=== PATIENT | female | born 1930 | race African-American/Black ===

== ENCOUNTER 2018-11-03 09:41 | Inpatient (IN) ==
[2018-11-03] MEDS ORDERED: 0.9 % Sodium Chloride 1,000 ML IVC ONE (09:58)
[2018-11-03] MEDS ORDERED: Ondansetron 4 MG/2 ML VIAL IVP ONE (09:58)
--- NOTE | 2018-11-03 10:06 | Emergency Department Note ---
Disposition Clinical Impression: Generalized weakness Nausea and vomiting Qualifiers: Vomiting type: unspecified Vomiting Intractability: non-intractable Qualified Code(s): R11.2 - Nausea with vomiting, unspecified Urinary tract infection Qualifiers: Urinary tract infection type: acute cystitis Hematuria presence: without hematuria Qualified Code(s): N30.00 - Acute cystitis without hematuria Disposition: Admitted As Inpatient Condition: Fair Referrals: Esvin Hernandez Jr, MD [Primary Care Provider] - Forms: ED Satisfaction Letter Time of Disposition: 13:15 Nausea/Vomiting/Diarrhea HPI - General Chief complaint: ED Nausea/Vomiting/Diarrhea Stated complaint: N/V/D Time Seen by Provider: 11/03/18 09:43 Source: patient, EMS Limitations: no limitations Nursing Notes Reviewed: Yes Vital Signs Reviewed: Yes - History of Present Illness HPI Narrative: Nontoxic-appearing 88-year-old female is brought by EMS for evaluation of an abrupt onset of nausea and vomiting and dizziness earlier this morning. She states she gotten up to go to the restroom and had sat down on the bench in the bathroom when she felt dizzy. She states that since then, she has experienced 4 episodes of watery emesis as well as severe nausea. She denies any associated chest pain, shortness of breath, abdominal pain, constipation, diarrhea, or fevers. She denies any hematochezia, hematemesis, or melena. She denies any recent antibiotic use. SHe denies any injury or trauma. She denies any known sick contacts. She does describe several days worth of a nonproductive cough. Pt Subjective Complaint: nausea, vomiting, other (dizziness) Onset (ago): hour(s) Description of emesis: watery Number of episodes of emesis: 4 Associated Abdominal Pain: No Associated symptoms: Reports: cough. Denies: chest pain, fever/chills, dysuria, shortness of breath - Related Data Allergies Allergy/AdvReac Type Severity Reaction Status Date / Time Penicillins [PCN] Allergy Hives Verified 11/03/18 09:51 All systems ED: reviewed and negative except as stated. Review of Systems: As Per HPI Constitutional: Denies: fever, chills, weakness, weight change Eyes: Denies: eye pain, eye discharge, vision change ENT ED: Denies: ear pain, throat pain, dental pain, hearing loss, epistaxis, congestion, dysphagia Cardiovascular: Denies: chest pain, palpitations, dyspnea on exertion, edema, syncope Respiratory: Denies: cough, dyspnea, wheezes, hemoptysis, stridor Gastrointestinal: Reports: as per HPI, nausea, vomiting. Denies: abdominal pain, diarrhea, constipation, hematemesis, melena, hematochezia Genitourinary: Denies: dysuria, frequency, hematuria, discharge Musculoskeletal: Denies: back pain, neck pain, arthralgia, myalgia Integumentary: Denies: rash, abrasion, lesions Neurological: Reports: as per HPI, other ("Dizziness"). Denies: headache, weakness, numbness, paresthesias, confusion, abnormal gait, vertigo Psychiatric: Denies: anxiety, depression, suicidal thoughts, homicidal thoughts, auditory hallucinations, visual hallucinations Endocrine: Denies: fatigue Hematological/Lymphatic: Denies: easy bleeding, easy bruising Allergic/Immunologic: Denies: facial swelling, urticaria Past Medical History - Past Medical History Attestation: Yes The following information was validated with the patient. Source: patient, obtained from family, nursing notes reviewed Medical history: Reports: hypertension Psychiatric history: Reports: no psych history - Social History Smoking Status: Never smoker Smokeless Tobacco Status: No Alcohol use: Reports: none Drug use: Reports: none Physical Exam - General Limitations: no limitations General appearance: alert, in distress - Head Head exam: atraumatic, normocephalic, normal inspection - Eye Eye exam: Present: normal appearance, PERRL, EOMI. Absent: nystagmus - ENT ENT exam: mucous membranes moist - Neck Neck exam: Present: normal inspection, full ROM - Chest Chest inspection: Present: normal inspection, symmetric chest wall rise - Respiratory Respiratory exam: Present: normal lung sounds bilaterally. Absent: respiratory distress, wheezes, stridor, accessory muscle use, prolonged expiratory phase - Cardiovascular Cardiovascular exam: Present: regular rate, normal rhythm, normal heart sounds - Abdominal Exam Abdominal exam: Present: soft, Non-Tender, normal bowel sounds. Absent: distention, guarding, rebound, rigidity - Extremities Exam Extremities exam: Present: normal inspection, full ROM - Neurological Exam Neurological exam: Present: alert, oriented X3 - Psychiatric Psychiatric exam: Present: normal affect, normal mood - Skin Skin exam: Present: warm, dry, intact, normal color. Absent: rash Course Course Narrative: I discussed this patient's case with Dr. Kristen Reilly. Dr. Kristen Reilly has had a [id number] evaluation with the patient and recommends admission to the hospital service for continued nausea, vomiting, urinary tract infection, and generalized weakness. 1320: I spoke with Dr. Vera the hospital service who has accepted the patient for admission to the hospitalist care. Vital Signs Temperature 97.7 F 11/03/18 09:45 Pulse Rate 92 11/03/18 09:45 Respiratory Rate 18 11/03/18 09:45 Blood Pressure 161/97 11/03/18 09:45 O2 Sat by Pulse Oximetry 96 11/03/18 09:45 Temperature 97.7 F 11/03/18 09:45 Pulse Rate 92 11/03/18 09:45 Respiratory Rate 18 11/03/18 09:45 Blood Pressure 161/97 11/03/18 09:45 O2 Sat by Pulse Oximetry 96 11/03/18 09:45 Oxygen Delivery Oxygen Delivery Room Air Nausea/Vomiting/Diarrhea - Medical Records Medical records reviewed: Yes I reviewed the patient's medical records. - Lab Data Lab results reviewed: Yes I reviewed the patient's lab results. Lab results narrative: Lab Results 11/03/18 11/03/18 11/03/18 Range/Units 10:25 10:25 10:25 WBC 8.8 (4.3-11.1) K/mcL RBC 4.74 (3.82-4.97) M/mcL Hgb 14.6 (11.5-15.4) g/dL Hct 43.8 (35.3-44.9) % MCV 92.4 (83.0-100.0) fL MCH 30.8 (28.0-33.3) pg MCHC 33.3 (31.6-35.5) g/dL RDW 13.0 (11.5-14.5) % Plt Count 130 L (140-400) K/mcL MPV 11.0 (9.4-12.4) fL Immature Gran % 0.5 (0-4) % Seg Neutrophils % 85.7 % Lymphocytes % 6.9 % Monocytes % 6.5 % Eosinophils % 0.2 % Basophils % 0.2 % Neutrophils # 7.5 (1.6-8.9) K/mcL Lymphocytes # 0.6 (0.6-4.6) K/mcL Monocytes # 0.6 (0.0-1.3) K/mcL Eosinophils # 0.0 (0.0-0.6) K/mcL Basophils # 0.0 (0.0-0.2) K/mcL Sodium 133 L (136-145) mEq/L Potassium 3.2 L (3.5-5.1) mEq/L Chloride 95 L (98-107) mEq/L Carbon Dioxide 31 H (23-29) mEq/L BUN 11 (8-23) mg/dL Creatinine 0.77 (0.60-1.20) mg/dL Est GFR ( Amer) > 60 (> 60) Est GFR (Non-Af Amer) > 60 (> 60) BUN/Creatinine Ratio 14 (6-26) Glucose 157 H (70-105) mg/dL Calculated Osmolality 279 L (280-300) Calcium 9.5 (8.6-10.3) mg/dL Total Bilirubin 1.2 H (0.3-1.0) mg/dL AST 19 (13-39) Units/L ALT 14 (7-52) Units/L Alkaline Phosphatase 74 (34-104) Units/L Troponin I < 0.03 (< 0.04) ng/mL Serum Total Protein 7.4 (6.4-8.9) g/dL Albumin 4.0 (3.5-5.7) g/dL Globulin 3.4 (2.4-3.5) g/dL Albumin/Globulin Ratio 1.2 (1.1-2.2) Lipase 10 L (11-82) Units/L Urine Color (Yellow) Urine Clarity (Clear) Urine pH (5.0-8.0) pH Units Ur Specific [place] (1.010-1.025) Urine Protein (Neg-Trace) mg/dL Urine Glucose (UA) (Normal) mg/dL Urine Ketones (Negative) mg/dL Urine Blood (Negative) Urine Nitrite (Negative) Urine Bilirubin (Negative) Urine Urobilinogen (Normal) mg/dL Ur Leukocyte Esterase (Negative) Urine Microscopic RBC (0-3) per hpf Urine Microscopic WBC (0-3) per hpf Ur Squamous Epith Cells (None-Few) per lpf Urine Bacteria (None-Few) per hpf Hyaline Casts (None-Few) per lpf Ur Culture Indicated? (NO) 11/03/18 Range/Units 11:37 WBC (4.3-11.1) K/mcL RBC (3.82-4.97) M/mcL Hgb (11.5-15.4) g/dL Hct (35.3-44.9) % MCV (83.0-100.0) fL MCH (28.0-33.3) pg MCHC (31.6-35.5) g/dL RDW (11.5-14.5) % Plt Count (140-400) K/mcL MPV (9.4-12.4) fL Immature Gran % (0-4) % Seg Neutrophils % % Lymphocytes % % Monocytes % % Eosinophils % % Basophils % % Neutrophils # (1.6-8.9) K/mcL Lymphocytes # (0.6-4.6) K/mcL Monocytes # (0.0-1.3) K/mcL Eosinophils # (0.0-0.6) K/mcL Basophils # (0.0-0.2) K/mcL Sodium (136-145) mEq/L Potassium (3.5-5.1) mEq/L Chloride (98-107) mEq/L Carbon Dioxide (23-29) mEq/L BUN (8-23) mg/dL Creatinine (0.60-1.20) mg/dL Est GFR ( Amer) (> 60) Est GFR (Non-Af Amer) (> 60) BUN/Creatinine Ratio (6-26) Glucose (70-105) mg/dL Calculated Osmolality (280-300) Calcium (8.6-10.3) mg/dL Total Bilirubin (0.3-1.0) mg/dL AST (13-39) Units/L ALT (7-52) Units/L Alkaline Phosphatase (34-104) Units/L Troponin I (< 0.04) ng/mL Serum Total Protein (6.4-8.9) g/dL Albumin (3.5-5.7) g/dL Globulin (2.4-3.5) g/dL Albumin/Globulin Ratio (1.1-2.2) Lipase (11-82) Units/L Urine Color Yellow (Yellow) Urine Clarity Cloudy A (Clear) Urine pH 7.5 (5.0-8.0) pH Units Ur Specific [place] 1.008 L (1.010-1.025) Urine Protein Negative (Neg-Trace) mg/dL Urine Glucose (UA) Normal (Normal) mg/dL Urine Ketones Trace H (Negative) mg/dL Urine Blood Negative (Negative) Urine Nitrite Positive A (Negative) Urine Bilirubin Negative (Negative) Urine Urobilinogen Normal (Normal) mg/dL Ur Leukocyte Esterase Trace H (Negative) Urine Microscopic RBC 0-3 (0-3) per hpf Urine Microscopic WBC 5-15 H (0-3) per hpf Ur Squamous Epith Cells Many H (None-Few) per lpf Urine Bacteria Many H (None-Few) per hpf Hyaline Casts None Seen (None-Few) per lpf Ur Culture Indicated? NO. A (NO) Result diagrams: 11/03/18 10:25 11/03/18 10:25 Lab Results 11/03/18 11/03/18 11/03/18 Range/Units 10:25 10:25 10:25 WBC 8.8 (4.3-11.1) K/mcL RBC 4.74 (3.82-4.97) M/mcL Hgb 14.6 (11.5-15.4) g/dL Hct 43.8 (35.3-44.9) % MCV 92.4 (83.0-100.0) fL MCH 30.8 (28.0-33.3) pg MCHC 33.3 (31.6-35.5) g/dL RDW 13.0 (11.5-14.5) % Plt Count 130 L (140-400) K/mcL MPV 11.0 (9.4-12.4) fL Immature Gran % 0.5 (0-4) % Seg Neutrophils % 85.7 % Lymphocytes % 6.9 % Monocytes % 6.5 % Eosinophils % 0.2 % Basophils % 0.2 % Neutrophils # 7.5 (1.6-8.9) K/mcL Lymphocytes # 0.6 (0.6-4.6) K/mcL Monocytes # 0.6 (0.0-1.3) K/mcL Eosinophils # 0.0 (0.0-0.6) K/mcL Basophils # 0.0 (0.0-0.2) K/mcL Sodium 133 L (136-145) mEq/L Potassium 3.2 L (3.5-5.1) mEq/L Chloride 95 L (98-107) mEq/L Carbon Dioxide 31 H (23-29) mEq/L BUN 11 (8-23) mg/dL Creatinine 0.77 (0.60-1.20) mg/dL Est GFR ( Amer) > 60 (> 60) Est GFR (Non-Af Amer) > 60 (> 60) BUN/Creatinine Ratio 14 (6-26) Glucose 157 H (70-105) mg/dL Calculated Osmolality 279 L (280-300) Calcium 9.5 (8.6-10.3) mg/dL Total Bilirubin 1.2 H (0.3-1.0) mg/dL AST 19 (13-39) Units/L ALT 14 (7-52) Units/L Alkaline Phosphatase 74 (34-104) Units/L Troponin I < 0.03 (< 0.04) ng/mL Serum Total Protein 7.4 (6.4-8.9) g/dL Albumin 4.0 (3.5-5.7) g/dL Globulin 3.4 (2.4-3.5) g/dL Albumin/Globulin Ratio 1.2 (1.1-2.2) Lipase 10 L (11-82) Units/L Urine Color (Yellow) Urine Clarity (Clear) Urine pH (5.0-8.0) pH Units Ur Specific [place] (1.010-1.025) Urine Protein (Neg-Trace) mg/dL Urine Glucose (UA) (Normal) mg/dL Urine Ketones (Negative) mg/dL Urine Blood (Negative) Urine Nitrite (Negative) Urine Bilirubin (Negative) Urine Urobilinogen (Normal) mg/dL Ur Leukocyte Esterase (Negative) Urine Microscopic RBC (0-3) per hpf Urine Microscopic WBC (0-3) per hpf Ur Squamous Epith Cells (None-Few) per lpf Urine Bacteria (None-Few) per hpf Hyaline Casts (None-Few) per lpf Ur Culture Indicated? (NO) 11/03/18 Range/Units 11:37 WBC (4.3-11.1) K/mcL RBC (3.82-4.97) M/mcL Hgb (11.5-15.4) g/dL Hct (35.3-44.9) % MCV (83.0-100.0) fL MCH (28.0-33.3) pg MCHC (31.6-35.5) g/dL RDW (11.5-14.5) % Plt Count (140-400) K/mcL MPV (9.4-12.4) fL Immature Gran % (0-4) % Seg Neutrophils % % Lymphocytes % % Monocytes % % Eosinophils % % Basophils % % Neutrophils # (1.6-8.9) K/mcL Lymphocytes # (0.6-4.6) K/mcL Monocytes # (0.0-1.3) K/mcL Eosinophils # (0.0-0.6) K/mcL Basophils # (0.0-0.2) K/mcL Sodium (136-145) mEq/L Potassium (3.5-5.1) mEq/L Chloride (98-107) mEq/L Carbon Dioxide (23-29) mEq/L BUN (8-23) mg/dL Creatinine (0.60-1.20) mg/dL Est GFR ( Amer) (> 60) Est GFR (Non-Af Amer) (> 60) BUN/Creatinine Ratio (6-26) Glucose (70-105) mg/dL Calculated Osmolality (280-300) Calcium (8.6-10.3) mg/dL Total Bilirubin (0.3-1.0) mg/dL AST (13-39) Units/L ALT (7-52) Units/L Alkaline Phosphatase (34-104) Units/L Troponin I (< 0.04) ng/mL Serum Total Protein (6.4-8.9) g/dL Albumin (3.5-5.7) g/dL Globulin (2.4-3.5) g/dL Albumin/Globulin Ratio (1.1-2.2) Lipase (11-82) Units/L Urine Color Yellow (Yellow) Urine Clarity Cloudy A (Clear) Urine pH 7.5 (5.0-8.0) pH Units Ur Specific [place] 1.008 L (1.010-1.025) Urine Protein Negative (Neg-Trace) mg/dL Urine Glucose (UA) Normal (Normal) mg/dL Urine Ketones Trace H (Negative) mg/dL Urine Blood Negative (Negative) Urine Nitrite Positive A (Negative) Urine Bilirubin Negative (Negative) Urine Urobilinogen Normal (Normal) mg/dL Ur Leukocyte Esterase Trace H (Negative) Urine Microscopic RBC 0-3 (0-3) per hpf Urine Microscopic WBC 5-15 H (0-3) per hpf Ur Squamous Epith Cells Many H (None-Few) per lpf Urine Bacteria Many H (None-Few) per hpf Hyaline Casts None Seen (None-Few) per lpf Ur Culture Indicated? NO. A (NO) - Radiology Data Radiology results reviewed: Yes I reviewed the patient's radiology results. Chest X-Ray 11/03/18 09:59 IMPRESSION: No acute cardiopulmonary findings. D/ / Jazmine Han MD / Jazmine Han MD Interpreting Provider: Jazmine Han MD Abdomen/Pelvis CT 11/03/18 11:02 IMPRESSION: No acute process is identified involving the bowel to explain patient's nausea and vomiting. Some bowel diverticulosis is noted without acute diverticulitis. No CT evidence of acute appendicitis. There is mild to moderate right-sided hydronephrosis, with marked ureteral dilation seen throughout its course, with no underlying calculus seen within the ureter. 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 Multilevel degenerative changes are seen in the spine, as noted above. Degenerative changes are seen at the pubic symphysis, with mild soft tissue thickening surrounding the joint space is well as a small amount of joint fluid. No definite osseous destructive change seen to suggest osteomyelitis within this joint, however. Cardiomegaly. Focal abnormal area of wedge-shaped low attenuation seen within the subcapsular portion of the right hepatic lobe measuring 2.6 cm, axial image 58. Further workup is recommended with MR imaging of the liver using liver mass protocol if able. If unable to undergo MRI, a liver mass protocol CT examination should be performed. This will also allow assessment of the presumed multiple hepatic cysts throughout the liver. D/ / 11/03/2018 13:07:55 Rio Calderon MD / bcarter Interpreting Provider: Rio Calderon MD - EKG Data EKG attestation: Yes I reviewed and interpreted this EKG. EKG results narrative: EKG shows a atrial fibrillation at a rate of 82 bpm. QRS duration 100, QT/QTc interval 423/47. No ectopy noted. No ST elevations. No old EKG for comparison.
[2018-11-03 10:38] LABS: Basophils % 0.2 %; Eosinophils % 0.2 %; Hematocrit 43.8 % (35.3-44.9); Hemoglobin 14.6 g/dL (11.5-15.4); Immature Granulocytes % 0.5 % (0-4); Lymphocytes # 0.6 K/mcL (0.6-4.6); Lymphocytes % 6.9 %; Mean Corpuscular HGB Conc 33.3 g/dL (31.6-35.5); Mean Corpuscular Hemoglobin 30.8 pg (28.0-33.3); Mean Corpuscular Volume 92.4 fL (83.0-100.0); Monocytes # 0.6 K/mcL (0.0-1.3); Monocytes % 6.5 %; Neutrophils # 7.5 K/mcL (1.6-8.9); Platelet Count 130 K/mcL (140-400); Red Blood Count 4.74 M/mcL (3.82-4.97); Segmented Neutrophils % 85.7 %
[2018-11-03 10:58] LABS: Alanine Aminotransferase 14 Units/L (7-52); Albumin/Globulin Ratio 1.2 (1.1-2.2); Alkaline Phosphatase 74 Units/L (34-104); Aspartate Amino Transferase 19 Units/L (13-39); BUN/Creatinine Ratio 14 (6-26); Bilirubin,Total 1.2 mg/dL (0.3-1.0); Blood Urea Nitrogen 11 mg/dL (8-23); Calcium 9.5 mg/dL (8.6-10.3); Carbon Dioxide 31 mEq/L (23-29); Chloride 95 mEq/L (98-107); Globulin 3.4 g/dL (2.4-3.5); Glucose 157 mg/dL (70-105); Lipase 10 Units/L (11-82); Osmolality,Calculated 279 (280-300); Potassium 3.2 mEq/L (3.5-5.1); Sodium 133 mEq/L (136-145); Total Protein 7.4 g/dL (6.4-8.9); eGFR For Non-African Americans > 60 (> 60)
[2018-11-03] MEDS ORDERED: Isovue-370 500 ML BOTTLE IVP ONE (11:02)
[2018-11-03 12:00] LABS: Bilirubin,Urine Negative (Negative); Blood,Urine Negative (Negative); Clarity,Urine Cloudy (Clear); Color,Urine Yellow (Yellow); Glucose,Urine (UA) Normal (Normal); Ketones,Urine Trace mg/dL (Negative); Leukocyte Esterase,Urine Trace (Negative); Nitrite,Urine Positive (Negative); PH,Urine 7.5 pH Units (5.0-8.0); Protein,Urine Negative (Neg-Trace); Specific Gravity,Urine 1.008 (1.010-1.025); Urobilinogen,Urine Normal (Normal)
[2018-11-03 12:02] LABS: Bacteria,Urine Many per hpf (None-Few); Hyaline Casts,Urine None Seen per lpf (None-Few); RBC,Urine 0-3 per hpf (0-3); Squamous Epithelial Cell,Urine Many per lpf (None-Few)
--- NOTE | 2018-11-03 13:20 | Emergency Department Note ---
Disposition Clinical Impression: Generalized weakness Nausea and vomiting Qualifiers: Vomiting type: unspecified Vomiting Intractability: non-intractable Qualified Code(s): R11.2 - Nausea with vomiting, unspecified Urinary tract infection Qualifiers: Urinary tract infection type: acute cystitis Hematuria presence: without hematuria Qualified Code(s): N30.00 - Acute cystitis without hematuria Disposition: Admitted As Inpatient Condition: Fair Referrals: Esvin Hernandez Jr, MD [Primary Care Provider] - Forms: ED Satisfaction Letter General Adult HPI - General Chief complaint: ED Nausea/Vomiting/Diarrhea Stated complaint: N/V/D Time Seen by Provider: 11/03/18 09:43 Source: patient, EMS Limitations: no limitations - History of Present Illness Pain Scale: 0 - Related Data Allergies Allergy/AdvReac Type Severity Reaction Status Date / Time Penicillins [PCN] Allergy Hives Verified 11/03/18 09:51 Constitutional: Denies: fever, chills, weakness, weight change Eyes: Denies: eye pain, eye discharge, vision change ENT ED: Denies: ear pain, throat pain, dental pain, hearing loss, epistaxis, congestion, dysphagia Cardiovascular: Denies: chest pain, palpitations, dyspnea on exertion, edema, syncope Respiratory: Denies: cough, dyspnea, wheezes, hemoptysis, stridor Gastrointestinal: Reports: as per HPI, nausea, vomiting. Denies: abdominal pain, diarrhea, constipation, hematemesis, melena, hematochezia Genitourinary: Denies: dysuria, frequency, hematuria, discharge Musculoskeletal: Denies: back pain, neck pain, arthralgia, myalgia Integumentary: Denies: rash, abrasion, lesions Neurological: Reports: as per HPI, other ("Dizziness"). Denies: headache, weakness, numbness, paresthesias, confusion, abnormal gait, vertigo Psychiatric: Denies: anxiety, depression, suicidal thoughts, homicidal thoughts, auditory hallucinations, visual hallucinations Endocrine: Denies: fatigue Hematological/Lymphatic: Denies: easy bleeding, easy bruising Allergic/Immunologic: Denies: facial swelling, urticaria Past Medical History - Past Medical History Medical history: Reports: hypertension Psychiatric history: Reports: no psych history - Social History Smoking Status: Never smoker Smokeless Tobacco Status: No Alcohol use: Reports: none Drug use: Reports: none Physical Exam - General Limitations: no limitations General appearance: alert, in distress Course Vital Signs Temperature 97.7 F 11/03/18 09:45 Pulse Rate 92 11/03/18 09:45 Respiratory Rate 18 11/03/18 09:45 Blood Pressure 161/97 11/03/18 09:45 O2 Sat by Pulse Oximetry 96 11/03/18 09:45 Temperature 97.7 F 11/03/18 09:45 Pulse Rate 92 11/03/18 09:45 Respiratory Rate 18 11/03/18 09:45 Blood Pressure 161/97 11/03/18 09:45 O2 Sat by Pulse Oximetry 96 11/03/18 09:45 Oxygen Delivery Oxygen Delivery Room Air Medical Decision Making - Lab Data Result diagrams: 11/03/18 10:25 11/03/18 10:25 Lab Results 11/03/18 11/03/18 11/03/18 Range/Units 10:25 10:25 10:25 WBC 8.8 (4.3-11.1) K/mcL RBC 4.74 (3.82-4.97) M/mcL Hgb 14.6 (11.5-15.4) g/dL Hct 43.8 (35.3-44.9) % MCV 92.4 (83.0-100.0) fL MCH 30.8 (28.0-33.3) pg MCHC 33.3 (31.6-35.5) g/dL RDW 13.0 (11.5-14.5) % Plt Count 130 L (140-400) K/mcL MPV 11.0 (9.4-12.4) fL Immature Gran % 0.5 (0-4) % Seg Neutrophils % 85.7 % Lymphocytes % 6.9 % Monocytes % 6.5 % Eosinophils % 0.2 % Basophils % 0.2 % Neutrophils # 7.5 (1.6-8.9) K/mcL Lymphocytes # 0.6 (0.6-4.6) K/mcL Monocytes # 0.6 (0.0-1.3) K/mcL Eosinophils # 0.0 (0.0-0.6) K/mcL Basophils # 0.0 (0.0-0.2) K/mcL Sodium 133 L (136-145) mEq/L Potassium 3.2 L (3.5-5.1) mEq/L Chloride 95 L (98-107) mEq/L Carbon Dioxide 31 H (23-29) mEq/L BUN 11 (8-23) mg/dL Creatinine 0.77 (0.60-1.20) mg/dL Est GFR ( Amer) > 60 (> 60) Est GFR (Non-Af Amer) > 60 (> 60) BUN/Creatinine Ratio 14 (6-26) Glucose 157 H (70-105) mg/dL Calculated Osmolality 279 L (280-300) Calcium 9.5 (8.6-10.3) mg/dL Total Bilirubin 1.2 H (0.3-1.0) mg/dL AST 19 (13-39) Units/L ALT 14 (7-52) Units/L Alkaline Phosphatase 74 (34-104) Units/L Troponin I < 0.03 (< 0.04) ng/mL Serum Total Protein 7.4 (6.4-8.9) g/dL Albumin 4.0 (3.5-5.7) g/dL Globulin 3.4 (2.4-3.5) g/dL Albumin/Globulin Ratio 1.2 (1.1-2.2) Lipase 10 L (11-82) Units/L Urine Color (Yellow) Urine Clarity (Clear) Urine pH (5.0-8.0) pH Units Ur Specific [place] (1.010-1.025) Urine Protein (Neg-Trace) mg/dL Urine Glucose (UA) (Normal) mg/dL Urine Ketones (Negative) mg/dL Urine Blood (Negative) Urine Nitrite (Negative) Urine Bilirubin (Negative) Urine Urobilinogen (Normal) mg/dL Ur Leukocyte Esterase (Negative) Urine Microscopic RBC (0-3) per hpf Urine Microscopic WBC (0-3) per hpf Ur Squamous Epith Cells (None-Few) per lpf Urine Bacteria (None-Few) per hpf Hyaline Casts (None-Few) per lpf Ur Culture Indicated? (NO) 11/03/18 Range/Units 11:37 WBC (4.3-11.1) K/mcL RBC (3.82-4.97) M/mcL Hgb (11.5-15.4) g/dL Hct (35.3-44.9) % MCV (83.0-100.0) fL MCH (28.0-33.3) pg MCHC (31.6-35.5) g/dL RDW (11.5-14.5) % Plt Count (140-400) K/mcL MPV (9.4-12.4) fL Immature Gran % (0-4) % Seg Neutrophils % % Lymphocytes % % Monocytes % % Eosinophils % % Basophils % % Neutrophils # (1.6-8.9) K/mcL Lymphocytes # (0.6-4.6) K/mcL Monocytes # (0.0-1.3) K/mcL Eosinophils # (0.0-0.6) K/mcL Basophils # (0.0-0.2) K/mcL Sodium (136-145) mEq/L Potassium (3.5-5.1) mEq/L Chloride (98-107) mEq/L Carbon Dioxide (23-29) mEq/L BUN (8-23) mg/dL Creatinine (0.60-1.20) mg/dL Est GFR ( Amer) (> 60) Est GFR (Non-Af Amer) (> 60) BUN/Creatinine Ratio (6-26) Glucose (70-105) mg/dL Calculated Osmolality (280-300) Calcium (8.6-10.3) mg/dL Total Bilirubin (0.3-1.0) mg/dL AST (13-39) Units/L ALT (7-52) Units/L Alkaline Phosphatase (34-104) Units/L Troponin I (< 0.04) ng/mL Serum Total Protein (6.4-8.9) g/dL Albumin (3.5-5.7) g/dL Globulin (2.4-3.5) g/dL Albumin/Globulin Ratio (1.1-2.2) Lipase (11-82) Units/L Urine Color Yellow (Yellow) Urine Clarity Cloudy A (Clear) Urine pH 7.5 (5.0-8.0) pH Units Ur Specific [place] 1.008 L (1.010-1.025) Urine Protein Negative (Neg-Trace) mg/dL Urine Glucose (UA) Normal (Normal) mg/dL Urine Ketones Trace H (Negative) mg/dL Urine Blood Negative (Negative) Urine Nitrite Positive A (Negative) Urine Bilirubin Negative (Negative) Urine Urobilinogen Normal (Normal) mg/dL Ur Leukocyte Esterase Trace H (Negative) Urine Microscopic RBC 0-3 (0-3) per hpf Urine Microscopic WBC 5-15 H (0-3) per hpf Ur Squamous Epith Cells Many H (None-Few) per lpf Urine Bacteria Many H (None-Few) per hpf Hyaline Casts None Seen (None-Few) per lpf Ur Culture Indicated? NO. A (NO) Attestation Statement - Attestation Attestation: I examined this patient and my medical decision-making was reviewed with the Resident Physician. I agree with the documented findings, disposition and treatment plan as described except to the extent set forth below. 88 year old female presents to the ED with complaints of generalized weakness and dizziness with nausea and vomitting. Juaquin [id number] shows to have a UTI with right hydronephrosis seoncaey to a possible urinaray stricture. Patient otherwise non toxic and stable but on re-evlaution she states that she feels weak still. She also has liver cysts that will need Ct/MR protocol for her liver. Juaquin will be admitte dto [facility] for UTI/generlized weakness
[2018-11-03] MEDS ORDERED: Naloxone 0.4 MG/ML INJ IVP PRN (13:33)
[2018-11-03] MEDS ORDERED: traMADol 50 MG TABLET PO PRN (13:34)
[2018-11-03] MEDS ORDERED: Acetaminophen 325 MG TABLET PO PRN (13:34)
[2018-11-03] MEDS ORDERED: Ondansetron 4 MG/2 ML VIAL IVP PRN (13:35)
[2018-11-03] MEDS ORDERED: Ringers Solution, Lactated 1,000 ML IVC SCH (13:45)
--- NOTE | 2018-11-03 14:08 | Internal Med History&Physical ---
Date of Encounter: 11/03/18 Time of Encounter: 13:45 Internal Medicine - H&P: HPI Chief complaint: generalized weakness, nausea Admitted From: Home History of present illness: Ms. Jack is a 88 year old female with past medical history of atrial fibrillation not on anticoagulation, hypertension, presented to the ED with 1 day history of generalized weakness and nausea. Associated with foul smelling urine but no significant dysuria. Denies fever but she was sweating profusely. Denies any flank pain. She has history of Escherichia coli UTI back in December and unsure whether she had tx at that time. No chest pain, shortness of breath, orthopnea, PND, or leg swelling. No cough, sputum production, abdominal pain, or constipation. Denies joint pain, rash. In the ED, she was afebrile and hemodynamically stable. Workup shows normal white blood cell count, potassium of 3.2, normal LFT and lipase, and urinalysis positive for nitrite and leukocyte esterase. CT scan showed mild to moderate right-sided hydronephrosis associated with marked ureteral dilatation without any underlying calculus ?distal ureteral stricture. No history of radiation in pelvic region. Patient was given 1 dose of ciprofloxacin and admitted for further management. Past Med Surg Social Fam HX - Past Medical History Attestation: Yes The following information was validated with the patient. Medical history: atrial fibrillation, hypertension Psychiatric history: no psych history - Past Surgical History Surgical History: no surgical history Additional surgical history: breast biopsy - Social History Smoking Status: Never smoker Smokeless Tobacco Status: No Alcohol use: none Drug use: none - Additional Family History Additional family history: Reviewed and noncontributory Internal Medicine - H&P: Meds Allergy/AdvReac Type Severity Reaction Status Date / Time Penicillins [PCN] Allergy Hives Verified 11/03/18 09:51 All Systems PM: A 10-system review of systems was performed and is negative for pertinent findings except as documented above in the HPI. - Constitutional Vitals: Temp Pulse Resp BP Pulse Ox 97.7 F 93 18 143/100 98 11/03/18 09:45 11/03/18 13:28 11/03/18 13:28 11/03/18 13:28 11/03/18 13:28 Exam: General: Alert and oriented, not in acute distress. HEENT:EOMI, pupils equal, round and reactive. Cardiovascular:Normal S1 & S2, No JVD. Irregular rhythm but normal rate Lungs: clear to auscultation, no wheezes/rales Abdomen:Soft, non-tender, no rigidity. : No CVA tenderness bilaterally Extremities:No deformity or swelling Neurological:Normal cognition and motor skills. Non-focal Skin: Clammy, No rash Pulses:Carotid and radial pulses normal +2. Rest of the physical exam is non contributory Internal Med - H&P Results - Labs CBC & Chem 7: 11/03/18 10:25 11/03/18 10:25 Labs: Short CBC 11/03/18 Range/Units 10:25 WBC 8.8 (4.3-11.1) K/mcL Hgb 14.6 (11.5-15.4) g/dL Hct 43.8 (35.3-44.9) % Plt Count 130 L (140-400) K/mcL Neutrophils # 7.5 (1.6-8.9) K/mcL BMP 11/03/18 10:25 Sodium 133 L Potassium 3.2 L Chloride 95 L Carbon Dioxide 31 H BUN 11 Creatinine 0.77 Glucose 157 H Calcium 9.5 Cardiac Enzymes 11/03/18 Range/Units 10:25 Troponin I < 0.03 (< 0.04) ng/mL Liver Function 11/03/18 Range/Units 10:25 Total Bilirubin 1.2 H (0.3-1.0) mg/dL AST 19 (13-39) Units/L ALT 14 (7-52) Units/L Alkaline Phosphatase 74 (34-104) Units/L Albumin 4.0 (3.5-5.7) g/dL Urine 11/03/18 Range/Units 11:37 Urine Color Yellow (Yellow) Urine Clarity Cloudy A (Clear) Urine pH 7.5 (5.0-8.0) pH Units Ur Specific [place] 1.008 L (1.010-1.025) Urine Protein Negative (Neg-Trace) mg/dL Urine Glucose (UA) Normal (Normal) mg/dL - Impressions ITS Impressions Chest X-Ray 11/03/18 09:59 IMPRESSION: No acute cardiopulmonary findings. D/ / Jazmine Han MD / Jazmine Han MD Interpreting Provider: Jazmine Han MD Abdomen/Pelvis CT 11/03/18 11:02 IMPRESSION: No acute process is identified involving the bowel to explain patient's nausea and vomiting. Some bowel diverticulosis is noted without acute diverticulitis. No CT evidence of acute appendicitis. There is mild to moderate right-sided hydronephrosis, with marked ureteral dilation seen throughout its course, with no underlying calculus seen within the ureter. 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 Multilevel degenerative changes are seen in the spine, as noted above. Degenerative changes are seen at the pubic symphysis, with mild soft tissue thickening surrounding the joint space is well as a small amount of joint fluid. No definite osseous destructive change seen to suggest osteomyelitis within this joint, however. Cardiomegaly. Focal abnormal area of wedge-shaped low attenuation seen within the subcapsular portion of the right hepatic lobe measuring 2.6 cm, axial image 58. Further workup is recommended with MR imaging of the liver using liver mass protocol if able. If unable to undergo MRI, a liver mass protocol CT examination should be performed. This will also allow assessment of the presumed multiple hepatic cysts throughout the liver. D/ / 11/03/2018 13:07:55 Rio Calderon MD / bcarter Interpreting Provider: Rio Calderon MD - Assessment and plan (1) Complicated UTI (urinary tract infection) Current Visit: Yes Status: Acute Assessment and plan: Presented with generalized weakness, nausea with urinalysis finding positive for nitrite and leukocyte esterase Imaging studies compatible with right hydroureteronephrosis ?distal ureteral stricture History of britt-sensitive Ecoli on urine culture in 12/2017 started on cipro in the ED, continue blood and urine culture, obtain lactate Discussed with Urology, will consult (2) Hydronephrosis Current Visit: Yes Status: Acute Assessment and plan: As above Qualifiers: Hydronephrosis type: with ureteral calculous obstruction Qualified Code(s): N13.2 - Hydronephrosis with renal and ureteral calculous obstruction (3) Hypertension Current Visit: Yes Status: Chronic Assessment and plan: Resume home meds once reconciled Qualifiers: Hypertension type: essential hypertension Qualified Code(s): I10 - Essential (primary) hypertension (4) Atrial fibrillation Current Visit: Yes Status: Chronic Assessment and plan: currently rate controlled CHADSVASC 4 but not on anticoagulation as an outpatient resume home meds once reconciled, PRN lopressor for now Qualifiers: Atrial fibrillation type: chronic Qualified Code(s): I48.2 - Chronic atrial fibrillation (5) DVT prophylaxis Current Visit: Yes Status: Acute Assessment and plan: SQ hep - Time Spent With Patient Total time spent is greater than 50% in coordination of care (as documented) at patient's floor/unit and/or counseling patient:
[2018-11-03] MEDS: 0.9 % Sodium Chloride w KCl 20 MEQ/1,000 ML MLS IVC SCH (15:37)
--- NOTE | 2018-11-03 16:10 | Urology - Consult Note ---
Date of Encounter: 11/03/18 Time of Encounter: 16:07 - Assessment and Plan (1) Complicated UTI (urinary tract infection) Current Visit: Yes Status: Acute Assessment and plan: Agree with broad-spectrum antimicrobial coverage until cultures return. Unsure if this has caused the patient's symptoms. (2) Hydronephrosis Current Visit: Yes Status: Acute Assessment and plan: Patient's hydronephrosis appears chronic in nature. Given patient's no discomfort as well as normal serum creatinine at this time no urgent intervention needed. We will follow with the patient tomorrow. Qualifiers: Hydronephrosis type: with ureteral calculous obstruction Qualified Code(s): N13.2 - Hydronephrosis with renal and ureteral calculous obstruction Urology CN:HPI Consult date: 11/03/18 Reason for consult Urology: Hydronephrosis Requesting physician: Nino Miller History of present illness: Jessica is a 88-year-old female who was admitted to the hospital secondary to not feeling well. Patient was found on CT scan to have moderate right-sided hydroureteronephrosis. Patient also with nitrite positive urinalysis. Patient denies any flank pain. No dysuria or gross hematuria. Patient does not have any prior imaging to compare her CT scan. Past Med Surg Social Fam HX - Past Medical History Medical history: atrial fibrillation, hypertension Psychiatric history: no psych history - Past Surgical History Surgical History: no surgical history Additional surgical history: breast biopsy - Social History Smoking Status: Never smoker Smokeless Tobacco Status: No Alcohol use: none Drug use: none - Family History Mother Hx Family Cardiac Disorders: Yes Medications and Allergies Allergy/AdvReac Type Severity Reaction Status Date / Time Penicillins [PCN] Allergy Hives Verified 11/03/18 09:51 Review of Systems - Constitutional no chills, no fever(s) - EENT Nose, mouth and throat: no dizziness, no sore throat - Cardiovascular no chest pain, no dyspnea - Respiratory no cough - Gastrointestinal nausea, vomiting, no abdominal pain - Musculoskeletal no back pain - Integumentary no erythema, no unusual bruising - Neurological no sensory deficit, no syncope - Psychiatric no confusion, no depression - Allergic/Immunologic no throat swelling, no wheezing Exam Initial Vital Signs Temp Pulse Resp BP Pulse Ox 97.7 F 92 18 161/97 96 11/03/18 09:45 11/03/18 09:45 11/03/18 09:45 11/03/18 09:45 11/03/18 09:45 General/Neuological: alert and oriented x 3 Eyes: normal pupils, non-icteric Neck: no lymphadenopathy noted, supple to touch Cardiovascular: RRR, no murmurs Respiratory: normal respiratory effort, clear bilaterally ABD: soft, nontender, no masses palpated, good bowel sounds Back: no pain on percussion bilaterally Skin: no rashes noted Musculoskeletal: normal gait, FROMx4 Urology Results - Labs 11/03/18 10:25 11/03/18 10:25 Abnormal lab results Plt Count 130 K/mcL (140-400) L 11/03/18 10:25 Sodium 133 mEq/L (136-145) L 11/03/18 10:25 Potassium 3.2 mEq/L (3.5-5.1) L 11/03/18 10:25 Chloride 95 mEq/L (98-107) L 11/03/18 10:25 Carbon Dioxide 31 mEq/L (23-29) H 11/03/18 10:25 Glucose 157 mg/dL (70-105) H 11/03/18 10:25 Calculated Osmolality 279 (280-300) L 11/03/18 10:25 Total Bilirubin 1.2 mg/dL (0.3-1.0) H 11/03/18 10:25 Lipase 10 Units/L (11-82) L 11/03/18 10:25 Urine Clarity Cloudy (Clear) A 11/03/18 11:37 Ur Specific [place] 1.008 (1.010-1.025) L 11/03/18 11:37 Urine Ketones Trace mg/dL (Negative) H 11/03/18 11:37 Urine Nitrite Positive (Negative) A 11/03/18 11:37 Ur Leukocyte Esterase Trace (Negative) H 11/03/18 11:37 Urine Microscopic WBC 5-15 per hpf (0-3) H 11/03/18 11:37 Ur Squamous Epith Cells Many per lpf (None-Few) H 11/03/18 11:37 Urine Bacteria Many per hpf (None-Few) H 11/03/18 11:37 Ur Culture Indicated? NO. (NO) A 11/03/18 11:37 Diabetes panel 11/03/18 Range/Units 10:25 Sodium 133 L (136-145) mEq/L Potassium 3.2 L (3.5-5.1) mEq/L Chloride 95 L (98-107) mEq/L Carbon Dioxide 31 H (23-29) mEq/L BUN 11 (8-23) mg/dL Creatinine 0.77 (0.60-1.20) mg/dL Glucose 157 H (70-105) mg/dL Calcium 9.5 (8.6-10.3) mg/dL AST 19 (13-39) Units/L ALT 14 (7-52) Units/L Alkaline Phosphatase 74 (34-104) Units/L Albumin 4.0 (3.5-5.7) g/dL Calcium panel 11/03/18 Range/Units 10:25 Calcium 9.5 (8.6-10.3) mg/dL Albumin 4.0 (3.5-5.7) g/dL Pituitary panel 11/03/18 Range/Units 10:25 Sodium 133 L (136-145) mEq/L Potassium 3.2 L (3.5-5.1) mEq/L Chloride 95 L (98-107) mEq/L Carbon Dioxide 31 H (23-29) mEq/L BUN 11 (8-23) mg/dL Creatinine 0.77 (0.60-1.20) mg/dL Glucose 157 H (70-105) mg/dL Calcium 9.5 (8.6-10.3) mg/dL Adrenal panel 11/03/18 Range/Units 10:25 Sodium 133 L (136-145) mEq/L Potassium 3.2 L (3.5-5.1) mEq/L Chloride 95 L (98-107) mEq/L Carbon Dioxide 31 H (23-29) mEq/L BUN 11 (8-23) mg/dL Creatinine 0.77 (0.60-1.20) mg/dL Glucose 157 H (70-105) mg/dL Calcium 9.5 (8.6-10.3) mg/dL Total Bilirubin 1.2 H (0.3-1.0) mg/dL AST 19 (13-39) Units/L ALT 14 (7-52) Units/L Alkaline Phosphatase 74 (34-104) Units/L Albumin 4.0 (3.5-5.7) g/dL All other labs normal. - Imaging CT scan - abdomen: image reviewed CT scan - pelvis: image reviewed Consult Discharge Plan - Plan Referrals: Esvin Hernandez Jr, MD [Primary Care Provider] -
[2018-11-04 04:42] LABS: Basophils % 0.1 %; Eosinophils % 0.5 %; Hematocrit 38.2 % (35.3-44.9); Immature Granulocytes % 0.4 % (0-4); Lymphocytes # 1.3 K/mcL (0.6-4.6); Lymphocytes % 15.3 %; Mean Corpuscular Volume 91.2 fL (83.0-100.0); Mean Platelet Volume 11.4 fL (9.4-12.4); Platelet Count 117 K/mcL (140-400); Red Blood Count 4.19 M/mcL (3.82-4.97); Red Cell Distribution Width 13.2 % (11.5-14.5); Segmented Neutrophils % 71.7 %
[2018-11-04 04:56] LABS: BUN/Creatinine Ratio 12 (6-26); Blood Urea Nitrogen 8 mg/dL (8-23); Calcium 8.4 mg/dL (8.6-10.3); Carbon Dioxide 28 mEq/L (23-29); Chloride 100 mEq/L (98-107); Glucose 96 mg/dL (70-105); Magnesium 1.5 mg/dL (1.6-2.6); Osmolality,Calculated 276 (280-300); Potassium 3.1 mEq/L (3.5-5.1); Sodium 134 mEq/L (136-145); eGFR For Non-African Americans > 60 (> 60)
[2018-11-04] MEDS: 0.9 % Sodium Chloride w KCl 20 MEQ/1,000 ML MLS IVC SCH (06:58)
--- NOTE | 2018-11-04 07:22 | Urology Progress Note ---
Date of Encounter: 11/04/18 Time of Encounter: 07:21 - Assessment and Plan (1) Complicated UTI (urinary tract infection) Current Visit: Yes Status: Acute Assessment and plan: Continue with broad-spectrum antimicrobial coverage until cultures return. (2) Hydronephrosis Current Visit: Yes Status: Acute Assessment and plan: Patient with hydronephrosis of uncertain etiology. We will continue with observation unless the patient declines clinically. Qualifiers: Hydronephrosis type: unspecified Qualified Code(s): N13.30 - Unspecified hydronephrosis Progress Note Narrative: Patient seen this morning. Patient feeling better. Recent with low-grade fevers overnight. Cultures pending. Objective Initial Vital Signs Temp Pulse Resp BP Pulse Ox 97.7 F 92 18 161/97 96 11/03/18 09:45 11/03/18 09:45 11/03/18 09:45 11/03/18 09:45 11/03/18 09:45 - General physical appearance Present: well developed, well nourished - Respiratory Present: normal expansion, normal respiratory effort - Abdomen Present: soft. Absent: tender - Labs 11/04/18 03:59 11/04/18 03:59 Diabetes panel 11/03/18 11/04/18 Range/Units 10:25 03:59 Sodium 133 L 134 L (136-145) mEq/L Potassium 3.2 L 3.1 L (3.5-5.1) mEq/L Chloride 95 L 100 (98-107) mEq/L Carbon Dioxide 31 H 28 (23-29) mEq/L BUN 11 8 (8-23) mg/dL Creatinine 0.77 0.65 (0.60-1.20) mg/dL Glucose 157 H 96 (70-105) mg/dL Calcium 9.5 8.4 L (8.6-10.3) mg/dL AST 19 (13-39) Units/L ALT 14 (7-52) Units/L Alkaline Phosphatase 74 (34-104) Units/L Albumin 4.0 (3.5-5.7) g/dL Calcium panel 11/03/18 11/04/18 Range/Units 10:25 03:59 Calcium 9.5 8.4 L (8.6-10.3) mg/dL Albumin 4.0 (3.5-5.7) g/dL Pituitary panel 11/03/18 11/04/18 Range/Units 10:25 03:59 Sodium 133 L 134 L (136-145) mEq/L Potassium 3.2 L 3.1 L (3.5-5.1) mEq/L Chloride 95 L 100 (98-107) mEq/L Carbon Dioxide 31 H 28 (23-29) mEq/L BUN 11 8 (8-23) mg/dL Creatinine 0.77 0.65 (0.60-1.20) mg/dL Glucose 157 H 96 (70-105) mg/dL Calcium 9.5 8.4 L (8.6-10.3) mg/dL Adrenal panel 11/03/18 11/04/18 Range/Units 10:25 03:59 Sodium 133 L 134 L (136-145) mEq/L Potassium 3.2 L 3.1 L (3.5-5.1) mEq/L Chloride 95 L 100 (98-107) mEq/L Carbon Dioxide 31 H 28 (23-29) mEq/L BUN 11 8 (8-23) mg/dL Creatinine 0.77 0.65 (0.60-1.20) mg/dL Glucose 157 H 96 (70-105) mg/dL Calcium 9.5 8.4 L (8.6-10.3) mg/dL Total Bilirubin 1.2 H (0.3-1.0) mg/dL AST 19 (13-39) Units/L ALT 14 (7-52) Units/L Alkaline Phosphatase 74 (34-104) Units/L Albumin 4.0 (3.5-5.7) g/dL Consult Discharge Plan - Plan Referrals: Esvin Hernandez Jr, MD [Primary Care Provider] - (Follow up appointment has been requested. Office will call with date and time of appointment. )
[2018-11-04] MEDS: Diltiazem CD (24hr) 120 MG CAPSULE PO SCH (08:35)
--- NOTE | 2018-11-04 11:14 | Internal Med Progress Note ---
Hospitalist Progress Note - Encounter Date of Encounter: 11/04/18 Time of Encounter: 09:15 - Subjective Interval History: Pt states that she feels stronger and denies any further episodes of nausea or vomiting. Had a temp of 99.8 at 1115pm yesterday. No chills. - Exam Vitals: Temp Pulse Resp BP Pulse Ox 99.0 F 100 16 139/82 97 11/04/18 07:30 11/04/18 07:30 11/04/18 07:30 11/04/18 07:30 11/04/18 07:30 Exam: General: Alert and oriented, not in acute distress. Cardiovascular:Normal S1 & S2, No JVD. Irregular rhythm, borderline tachycardia Lungs: clear to auscultation, no wheezes/rales Abdomen:Soft, non-tender, no rigidity. : No CVA tenderness bilaterally Extremities:No deformity or swelling Neurological:Normal cognition and motor skills. Non-focal - Assessment and Plan (1) Complicated UTI (urinary tract infection) Current Visit: Yes Status: Acute Assessment and Plan: Presented with generalized weakness, nausea with urinalysis finding positive for nitrite and leukocyte esterase Imaging studies compatible with right hydroureteronephrosis ?distal ureteral stricture Urology input appreciated, unclear etiology and may be chronic. Continue with observation for now History of britt-sensitive Ecoli on urine culture in 12/2017 continue IV Cipro follow up on blood and urine culture (2) Hydronephrosis Current Visit: Yes Status: Acute Assessment and Plan: As above (3) Hypertension Current Visit: Yes Status: Chronic Assessment and Plan: Resume home meds (4) Atrial fibrillation Current Visit: Yes Status: Chronic Assessment and Plan: CHADSVASC 4 but not on anticoagulation as an outpatient resume home meds, PRN lopressor for HR >110 (5) DVT prophylaxis Current Visit: Yes Status: Acute Assessment and Plan: SQ hep - Time Spent with Patient Total time spent is greater than 50% in coordination of care (as documented) at patient's floor/unit and/or counseling patient: Plan of Care Discussed with: patient Internal Medicine: Result - Labs CBC & Chem 7: 11/04/18 03:59 11/04/18 03:59 Labs: Short CBC 11/04/18 Range/Units 03:59 WBC 8.3 (4.3-11.1) K/mcL Hgb 13.0 D (11.5-15.4) g/dL Hct 38.2 (35.3-44.9) % Plt Count 117 L (140-400) K/mcL Neutrophils # 6.0 (1.6-8.9) K/mcL BMP 11/04/18 03:59 Sodium 134 L Potassium 3.1 L Chloride 100 Carbon Dioxide 28 BUN 8 Creatinine 0.65 Glucose 96 Calcium 8.4 L Urine 11/03/18 Range/Units 11:37 Urine Color Yellow (Yellow) Urine Clarity Cloudy A (Clear) Urine pH 7.5 (5.0-8.0) pH Units Ur Specific [place] 1.008 L (1.010-1.025) Urine Protein Negative (Neg-Trace) mg/dL Urine Glucose (UA) Normal (Normal) mg/dL - Impressions Impressions Chest X-Ray 11/03/18 09:59 IMPRESSION: No acute cardiopulmonary findings. D/ / Jazmine Han MD / Jazmine Han MD Interpreting Provider: Jazmine Han MD Abdomen/Pelvis CT 11/03/18 11:02 IMPRESSION: No acute process is identified involving the bowel to explain patient's nausea and vomiting. Some bowel diverticulosis is noted without acute diverticulitis. No CT evidence of acute appendicitis. There is mild to moderate right-sided hydronephrosis, with marked ureteral dilation seen throughout its course, with no underlying calculus seen within the ureter. 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 Multilevel degenerative changes are seen in the spine, as noted above. Degenerative changes are seen at the pubic symphysis, with mild soft tissue thickening surrounding the joint space is well as a small amount of joint fluid. No definite osseous destructive change seen to suggest osteomyelitis within this joint, however. Cardiomegaly. Focal abnormal area of wedge-shaped low attenuation seen within the subcapsular portion of the right hepatic lobe measuring 2.6 cm, axial image 58. Further workup is recommended with MR imaging of the liver using liver mass protocol if able. If unable to undergo MRI, a liver mass protocol CT examination should be performed. This will also allow assessment of the presumed multiple hepatic cysts throughout the liver. D/ / 11/03/2018 13:07:55 Rio Calderon MD / nusrat Interpreting Provider: Rio Calderon MD Consult Discharge Plan - Plan Referrals: Esvin Hernandez Jr, MD [Primary Care Provider] - 11/10/18 10:00 am () (2) Hydronephrosis Qualifiers: Hydronephrosis type: unspecified Qualified Code(s): N13.30 - Unspecified hydronephrosis (3) Hypertension Qualifiers: Hypertension type: essential hypertension Qualified Code(s): I10 - Essential (primary) hypertension (4) Atrial fibrillation Qualifiers: Atrial fibrillation type: chronic Qualified Code(s): I48.2 - Chronic atrial fibrillation
[2018-11-05 04:59] LABS: Basophils % 0.3 %; Eosinophils # 0.1 K/mcL (0.0-0.6); Hemoglobin 12.5 g/dL (11.5-15.4); Immature Granulocytes % 0.3 % (0-4); Lymphocytes # 1.3 K/mcL (0.6-4.6); Lymphocytes % 17.9 %; Mean Corpuscular HGB Conc 32.9 g/dL (31.6-35.5); Mean Corpuscular Hemoglobin 30.1 pg (28.0-33.3); Mean Corpuscular Volume 91.6 fL (83.0-100.0); Monocytes # 0.9 K/mcL (0.0-1.3); Monocytes % 13.1 %; Neutrophils # 4.9 K/mcL (1.6-8.9); Platelet Count 113 K/mcL (140-400); Red Blood Count 4.15 M/mcL (3.82-4.97); Red Cell Distribution Width 13.2 % (11.5-14.5); Segmented Neutrophils % 67.4 %
[2018-11-05 05:23] LABS: BUN/Creatinine Ratio 13 (6-26); Blood Urea Nitrogen 8 mg/dL (8-23); Calcium 8.5 mg/dL (8.6-10.3); Carbon Dioxide 27 mEq/L (23-29); Chloride 99 mEq/L (98-107); Glucose 96 mg/dL (70-105); Magnesium 1.8 mg/dL (1.6-2.6); Osmolality,Calculated 278 (280-300); Potassium 3.9 mEq/L (3.5-5.1); Sodium 135 mEq/L (136-145); eGFR For Non-African Americans > 60 (> 60)
--- NOTE | 2018-11-05 07:59 | Urology Progress Note ---
Date of Encounter: 11/05/18 Time of Encounter: 07:58 - Assessment and Plan (1) Complicated UTI (urinary tract infection) Current Visit: Yes Status: Acute Assessment and plan: Patient's urine culture still pending. Okay to send patient home on Cipro as patient has dramatically improved. Patient will have follow-up scheduled with me in the office. Call with any questions. (2) Hydronephrosis Current Visit: Yes Status: Acute Qualifiers: Hydronephrosis type: unspecified Qualified Code(s): N13.30 - Unspecified hydronephrosis Progress Note Narrative: Patient seen this morning. Patient feeling very well. She states that she has some congestion but otherwise no abdominal discomfort. Urine culture still pending. Patient again with very low-grade fever overnight. Objective Initial Vital Signs Temp Pulse Resp BP Pulse Ox 97.7 F 92 18 161/97 96 11/03/18 09:45 11/03/18 09:45 11/03/18 09:45 11/03/18 09:45 11/03/18 09:45 - General physical appearance Present: well developed, well nourished - Respiratory Present: normal expansion, normal respiratory effort - Abdomen Present: soft. Absent: tender - Labs 11/05/18 04:45 11/05/18 04:45 Diabetes panel 11/05/18 Range/Units 04:45 Sodium 135 L (136-145) mEq/L Potassium 3.9 (3.5-5.1) mEq/L Chloride 99 (98-107) mEq/L Carbon Dioxide 27 (23-29) mEq/L BUN 8 (8-23) mg/dL Creatinine 0.62 (0.60-1.20) mg/dL Glucose 96 (70-105) mg/dL Calcium 8.5 L (8.6-10.3) mg/dL Calcium panel 11/05/18 Range/Units 04:45 Calcium 8.5 L (8.6-10.3) mg/dL Pituitary panel 11/05/18 Range/Units 04:45 Sodium 135 L (136-145) mEq/L Potassium 3.9 (3.5-5.1) mEq/L Chloride 99 (98-107) mEq/L Carbon Dioxide 27 (23-29) mEq/L BUN 8 (8-23) mg/dL Creatinine 0.62 (0.60-1.20) mg/dL Glucose 96 (70-105) mg/dL Calcium 8.5 L (8.6-10.3) mg/dL Adrenal panel 11/05/18 Range/Units 04:45 Sodium 135 L (136-145) mEq/L Potassium 3.9 (3.5-5.1) mEq/L Chloride 99 (98-107) mEq/L Carbon Dioxide 27 (23-29) mEq/L BUN 8 (8-23) mg/dL Creatinine 0.62 (0.60-1.20) mg/dL Glucose 96 (70-105) mg/dL Calcium 8.5 L (8.6-10.3) mg/dL Consult Discharge Plan - Plan Referrals: Esvin Hernandez Jr, MD [Primary Care Provider] - 11/10/18 10:00 am ()
[2018-11-05] MEDS: Diltiazem CD (24hr) 120 MG CAPSULE PO SCH (09:35)
--- NOTE | 2018-11-05 10:49 | Discharge Summary ---
- NOTES TO OUTPATIENT PROVIDER Notes to Outpatient Provider: Admitted for complicated UTI with right-sided hydroureteronephrosis without any clear cause for obstruction. Evaluated in conjunction with Urology who felt that the findings may been chronic. No signs of sepsis or kidney dysfunction. Clinically improved with IV Cipro (allergic to PCN) and will be discharged home on a total of 10 day course with Urology follow up as outpatient. Of note, she had incidental finding of focal abnormality in the liver which will require outpatient MRI liver. Orders not resulted at time of discharge: Pending orders 11/03/18 13:33 Culture,Urine [RM] Stat 11/03/18 14:10 Culture,Blood [BC] Stat 11/05/18 09:40 Respiratory Infection Panel [[facility]MIC] Routine Date of Encounter: 11/05/18 Time of Encounter: 09:15 - Discharge Diagnosis (1) Complicated UTI (urinary tract infection) Priority: Primary Status: Acute (2) Hydronephrosis Priority: Secondary Status: Acute Qualifiers: Hydronephrosis type: unspecified Qualified Code(s): N13.30 - Unspecified hydronephrosis (3) Hypertension Priority: Secondary Status: Chronic Qualifiers: Hypertension type: essential hypertension Qualified Code(s): I10 - Essential (primary) hypertension (4) Atrial fibrillation Priority: Secondary Status: Chronic Qualifiers: Atrial fibrillation type: chronic Qualified Code(s): I48.2 - Chronic atrial fibrillation (5) DVT prophylaxis Priority: Secondary Status: Acute (6) Hypodense mass of liver Priority: Secondary Status: Acute Hospital course: Ms. Jack is a 88 year old female with PMHx of afib, HTN, who was admitted for lethargy. She was diagnosed with complicated UTI. Had right-sided hydroureteronephrosis without any clear cause for obstruction. Evaluated in conjunction with Urology who felt that the findings may been chronic. No signs of sepsis or kidney dysfunction. Clinically improved with IV Cipro (allergic to PCN) and will be discharged home on a total of 10 day course with Urology follow up as outpatient. Of note, she had incidental finding of focal abnormality in the liver which will require outpatient MRI liver. Discharge discussed with: patient, family, nurse - Time Spent with Patient Total time spent providing and/or coordinating discharge services: 31 mins - Discharge Medications Prescriptions: Benzocaine/Menthol Bro [Cepacol Sore Throat Lozenge] 1 each MM Q2H PRN #20 lozenge PRN Reason: Sore Throat Ciprofloxacin [Cipro] 500 mg PO BID 7 Days #14 tablet Home Medications: Atenolol [Tenormin] 50 mg PO DAILY 11/03/18 [History] Lisinopril/Hydrochlorothiazide [Zestoretic 20-25 mg Tablet] 1 tab PO BID 11/03/18 [History] dilTIAZem HCl [Diltiazem 24Hr ER] 120 mg PO DAILY 11/03/18 [History] Benzocaine/Menthol Bro [Cepacol Sore Throat Lozenge] 1 each MM Q2H PRN #20 lozenge 11/05/18 [Rx] Ciprofloxacin [Cipro] 500 mg PO BID 7 Days #14 tablet 11/05/18 [Rx] Allergies/Adverse Reactions: Allergy/AdvReac Type Severity Reaction Status Date / Time Penicillins [PCN] Allergy Hives Verified 11/03/18 09:51 Date of admission: 11/04/18 13:35 Primary care physician: Esvin Hernandez Jr, MD Consults: 11/03/18 14:03 Consult to Urology [CONS] Routine Consulting Provider: [facility] [place] Reason for Consult: complicated UTI, R hydroureteronephrosis ?distal ureteral stricture Call Completed: Yes - Constitutional Vitals: Temp Pulse Resp BP Pulse Ox 98.8 F 71 16 148/81 97 11/05/18 07:19 11/05/18 07:19 11/05/18 07:19 11/05/18 07:19 11/05/18 07:19 Exam: General: Alert and oriented, not in acute distress. Cardiovascular:Normal S1 & S2, No JVD. Irregular rhythm, normal rate Lungs: clear to auscultation, no wheezes/rales Abdomen:Soft, non-tender, no rigidity. : No CVA tenderness bilaterally Extremities:No deformity or swelling Neurological:Normal cognition and motor skills. Non-focal - Patient Status Disposition: Home, Self-Care Condition: Fair Functional capacity at discharge: independent ambulation Overall status at discharge: patient is progressing back to baseline - Discharge Instructions Instructions: Urinary Tract Infection in Women (DC), Atrial Fibrillation (DC), Chronic Hypertension (DC) Follow Up With: Esvin Hernandez Jr, MD [Primary Care Provider] - 11/10/18 10:00 am () Additional Instructions: Complete a course of PO Cipro as prescribed Outpatient follow up with URology for what appears to be chronic R hydronephrosis - Diet and Activity Activity: resume usual activities as tolerated Diet: low salt diet
[2018-11-05 11:18] VITALS: BP 137/91
[2018-11-05 13:36] LABS: Adenovirus Not Detected (Not Detect); Bordetella Pertussis Not Detected (Not Detect); Chlamydophila pneumoniae Not Detected (Not Detect); Coronavirus 229E Not Detected (Not Detect); Coronavirus HKU1 Not Detected (Not Detect); Coronavirus NL63 Not Detected (Not Detect); Coronavirus OC43 DETECTED (Not Detect); Human Metapneumovirus Not Detected (Not Detect); Human Rhinovirus/Enterovirus Not Detected (Not Detect); Influenza A Subtype 2009 H1 Not Detected (Not Detect); Influenza A Untypeable Not Detected (Not Detect); Influenza B Not Detected (Not Detect); Mycoplasma pneumoniae Not Detected (Not Detect); Parainfluenza Virus 1 Not Detected (Not Detect); Parainfluenza Virus 2 Not Detected (Not Detect); Parainfluenza Virus 3 Not Detected (Not Detect); Parainfluenza Virus 4 Not Detected (Not Detect); Respiratory Syncytial Virus Not Detected (Not Detect)
--- NOTE | 2018-11-06 05:20 | Electrocardiograph Report ---
[place] [employer] [facility] Test Date: 2018-11-03 Pat Name: Jessica Jack Department: EXAM7 Room: 3B33 Gender: F [employer]: : [id number] Requested By: Daquan Fields Order Number: [id number] Reading MD: Mc Anguiano Measurements Intervals [place] Rate: 82 P: [place]: QRS: 74 QRSD: 100 T: 265 QT: 423 QTc: 427 Interpretive Statements Atrial fibrillation Anteroseptal infarct, age indeterminate Electronically Signed On 11-06-2018 5:19:12 EST by Mc Anguiano
== END 2018-11-05 14:40 | disposition home or self-care (01) | DRG 690 ==
LOC: 3BNU 09:41 → EMEROOARM 09:41 → SUATTDRO 13:34 → 3BNU 14:51
PROVIDERS: ADMIT Student in an Organized Health Care Education/Training Program; ATTEND Internal Medicine